=== PATIENT | female | born 1930 | race Caucasian/White ===

== ENCOUNTER 2019-05-25 16:43 | Inpatient (IN) | payer MEDICARE, OTHER ==
[2019-05-25] MEDS ORDERED: ACETAMINOPHEN TAB 325 MG TAB PO PRN (21:25)
[2019-05-25] MEDS ORDERED: HEPARIN SODIUM,PORCINE 5,000 UNIT/ML 1 ML VIAL IV PRN (21:27)
[2019-05-25] MEDS ORDERED: HEPARIN SOD,PORK IN 0.45% NACL 25,000 UNIT in 0.45% NACL 1 250ML.BAG IV SCH (22:00)
[2019-05-25 22:13] LABS: Basophils # (A) 0.1 k/uL (0-0.2); Basophils % (A) 1 %; Eosinophils # (A) 0.1 k/uL (0-0.7); Eosinophils % (A) 2 %; HCT 37.8 % (34.0-46.0); HGB 12.9 gm/dL (11.4-16.0); Lymphocytes # (A) 2.4 k/uL (1.0-4.8); Lymphocytes % (A) 27 %; MCH 32.7 pg (25.0-35.0); MCHC 34.1 g/dL (31.0-37.0); MCV 95.9 fL (80.0-100.0); Mean Platelet Volume 8.3; Monocytes # (A) 0.4 k/uL (0-1.0); Monocytes % (A) 4 %; Neutrophils # (A) 5.7 k/uL (1.3-7.7); Neutrophils % (A) 65 %; Platelet Count 177 k/uL (150-450); RBC 3.94 m/uL (3.80-5.40); RDW 13.2 % (11.5-15.5); WBC 8.8 k/uL (3.8-10.6)
[2019-05-25 22:13] LABS: Appearance,Urine Clear (Clear); Bacteria,Urine Rare /hpf; Bilirubin,Urine Negative (Negative); Blood,Urine Negative (Negative); Color,Urine Yellow; Glucose,Urine (UA) Negative (Negative); Hyaline Casts,Urine 1 /lpf (0-2); Ketones,Urine 1+ (Negative); Leukocyte Esterase,Urine Large (Negative); Mucus,Urine Rare /hpf; Nitrite,Urine Negative (Negative); Protein,Urine 1+ (Negative); RBC,Urine 5 /hpf (0-5); Specific Gravity,Urine 1.016 (1.001-1.035); Squamous Epithelial Cell,Urine 1 /hpf (0-4); Urobilinogen,Urine <2.0 mg/dL (<2.0); WBC,Urine 96 /hpf (0-5)
[2019-05-25] MEDS: ATORVASTATIN 40 MG TAB PO SCH (22:21)
[2019-05-25 22:22] LABS: INR 1.1 (<1.2); Partial Thromboplastin Time 29.5 sec (22.0-30.0); Prothrombin Time 11.1 sec (9.0-12.0)
[2019-05-26 03:37] LABS: Basophils # (A) 0.1 k/uL (0-0.2); Basophils % (A) 2 %; Eosinophils # (A) 0.1 k/uL (0-0.7); Eosinophils % (A) 2 %; HCT 35.9 % (34.0-46.0); HGB 12.2 gm/dL (11.4-16.0); Lymphocytes # (A) 2.2 k/uL (1.0-4.8); Lymphocytes % (A) 31 %; MCH 32.9 pg (25.0-35.0); MCHC 34.1 g/dL (31.0-37.0); MCV 96.7 fL (80.0-100.0); Mean Platelet Volume 8.1; Monocytes # (A) 0.3 k/uL (0-1.0); Monocytes % (A) 4 %; Neutrophils # (A) 4.3 k/uL (1.3-7.7); Neutrophils % (A) 60 %; Platelet Count 139 k/uL (150-450); RBC 3.71 m/uL (3.80-5.40); RDW 13.2 % (11.5-15.5); WBC 7.1 k/uL (3.8-10.6)
[2019-05-26 03:47] LABS: Potassium 3.4 mmol/L (3.5-5.1)
[2019-05-26 03:48] LABS: African American GFR (CKD) >90 (>60 ml/min/1.73 sqM); Anion Gap 6 mmol/L; Blood Urea Nitrogen 17 mg/dL (7-17); Calcium 8.9 mg/dL (8.4-10.2); Carbon Dioxide 25 mmol/L (22-30); Chloride 108 mmol/L (98-107); Glucose 91 mg/dL (74-99); Non-African American GFR(CKD) 81 (>60 ml/min/1.73 sqM); Sodium 139 mmol/L (137-145)
--- NOTE | 2019-05-26 09:14 | P.CRDCN ---
History of Present Illness Consult date: 05/26/19 Requesting physician: Israel Powell Consult reason: atrial fibrillation Chief complaint: Mental status change History of present illness: This is an 88-year-old female who was transferred here from [facility], the history was obtained from the medical record as the patient has advanced dementia. She was apparently noted by the staff there to have altered mental status changes. She has history of persistent atrial fibrillation, hypertension, hyperlipidemia, urinary retention, depression, Alzheimer's as mentioned, prior CVA. Cardiology consultation was requested for atrial fibrillation. Laboratory data performed at [facility], troponin 0.17, influenza A and B-, white blood cell count 11.6, hemoglobin 14.2, platelet count 200 sodium 139, potassium 3.9, chloride 104, CO2 24, glucose 142, BUN 19, creatinine 0.7, AST 46, ALT 38, alk phos 114, Lanoxin level 0.7 lactic acid 1.5, magnesium 1.8, BNP 1910, pro calcitonin negative, repeat troponin there 0.035 patient's home medications included Zoloft 50 mg daily, milk of magnesia, did trip and, Lanoxin 0.125 daily, Plavix 75 mg daily, Lipitor 40 mg daily, atenolol 100 mg daily. EKG performed at [facility] showed atrial fibrillation with slow ventricular response. Blood pressure here this morning 119/60, heart rate in the 60s, 94% on room air. Blood cell count is normal, hemoglobin 12.2, platelet count 139. Sodium 139, potassium 3.4, BUN 17, creatinine 0.6. Troponins 0.16, 0.13. Positive UTI. Chest x-ray performed at [facility] did not reveal any acute changes, CT of the brain was also performed revealed some cerebral cortical atrophy no mass effect or midline shift and no sign of intracranial bleeding At the time of my examination this morning, patient appears to be comfortable, lying flat in bed. She will open her eyes when you speak with her, otherwise no verbal response. Both of her hands are somewhat contracted on her chest. Past Medical History Past Medical History: CVA/TIA, Hyperlipidemia, Hypertension, Myocardial Infarction (NM) Additional Past Medical History / Comment(s): non healing wound L foot Last Myocardial Infarction Date:: 1996 History of Any Multi-Drug Resistant Organisms: Acinetobacter (MDRO) Date of last positivie culture/infection: 04/04/17 MDRO Source:: LEG Past Surgical History: Heart Catheterization With Stent Past Anesthesia/Blood Transfusion Reactions: No Reported Reaction Date of Last Stent Placement:: 1996 Past Psychological History: No Psychological Hx Reported Smoking Status: Never smoker Past Alcohol Use History: None Reported Past Drug Use History: None Reported - Past Family History Mother Family Medical History: No Reported History Medications and Allergies Home Medications Medication Instructions Recorded Confirmed Type Atenolol [Tenormin] 100 mg PO DAILY 04/03/17 05/25/19 History Clopidogrel Bisulfate [Plavix] 75 mg PO DAILY 04/03/17 05/25/19 History Digoxin [Lanoxin] 125 mcg PO DAILY 04/03/17 05/25/19 History amLODIPine [Norvasc] 10 mg PO DAILY 04/03/17 05/25/19 History Atorvastatin [Lipitor] 40 mg PO HS tab 04/13/17 05/25/19 Rx Sertraline [Zoloft] 50 mg PO DAILY 05/09/17 05/25/19 History Oxybutynin Xl [Ditropan Xl] 5 mg PO DAILY 05/25/19 05/25/19 History Allergies Allergy/AdvReac Type Severity Reaction Status Date / Time No Known Allergies Allergy Verified 06/20/17 14:16 Physical Exam Vitals: Vital Signs Temp Pulse Resp BP Pulse Ox 05/26/19 04:00 96.9 F L 60 16 119/67 94 L 05/26/19 00:00 98.9 F 65 16 144/78 95 05/25/19 21:00 98.3 F 63 16 133/71 94 L Intake and Output 05/25/19 05/26/19 05/26/19 22:59 06:59 14:59 Intake Total 28.193 Output Total 100 250 Balance -71.807 -250 Intake: Intake, IV Titration 28.193 Amount Heparin Sod,Pork in 0.45% 28.193 NaCl 25,000 unit In 0.45 % NaCl 1 250ml.bag @ 8.4 UNITS/KG/HR 4.725 mls/hr IV .Q24H [facility] Rx#: [id number] Output: Urine 100 250 Other: Voiding Method Indwelling Catheter Indwelling Catheter Weight 56.245 kg 55.2 kg PHYSICAL EXAMINATION: GENERAL: 88-year-old female in no acute distress at the time of my examination HEENT: Head is atraumatic, normocephalic. Pupils equal, round. Sclera anicteric. Conjunctiva are clear. Mucous membranes of the mouth are moist. Neck is supple. There is no elevated jugular venous pressure. No carotid bruit is heard. HEART EXAMINATION: Heart S1 and S2 irregularly irregular a systolic murmur is heard CHEST EXAMINATION: Lungs are clear to auscultation and precussion anteriorly. No chest wall tenderness is noted on palpation or with deep breathing. ABDOMEN: Soft, nontender. Bowel sounds are heard. No organomegaly noted. EXTREMITIES: 2+ peripheral pulses with no evidence of peripheral edema and no calf tenderness noted. NEUROLOGIC [patient is sleepy, fairly unresponsive, opens eyes to verbal co mmand. Results 05/26/19 03:21 05/26/19 03:21 Cardiac Enzymes 05/25/19 05/26/19 Range/Units 22:03 03:21 Troponin I 0.168 H* 0.139 H* (0.000-0.034) ng/mL Coagulation 05/25/19 05/26/19 Range/Units 22:03 03:21 PT 11.1 (9.0-12.0) sec APTT 29.5 38.8 H (22.0-30.0) sec CBC 05/25/19 05/26/19 Range/Units 22:03 03:21 WBC 8.8 7.1 (3.8-10.6) k/uL RBC 3.94 3.71 L (3.80-5.40) m/uL Hgb 12.9 12.2 (11.4-16.0) gm/dL Hct 37.8 35.9 (34.0-46.0) % Plt Count 177 139 L (150-450) k/uL Comprehensive Metabolic Panel 05/26/19 Range/Units 03:21 Sodium 139 (137-145) mmol/L Potassium 3.4 L (3.5-5.1) mmol/L Chloride 108 H (98-107) mmol/L Carbon Dioxide 25 (22-30) mmol/L BUN 17 (7-17) mg/dL Creatinine 0.61 (0.52-1.04) mg/dL Glucose 91 (74-99) mg/dL Calcium 8.9 (8.4-10.2) mg/dL Current Medications Generic Name Dose Route Start Last Admin Trade Name Mila PRN Reason Stop Dose Admin Acetaminophen 650 mg 05/25/19 21:25 Tylenol Tab PO Q4HR PRN Fever and/ or Pain Atorvastatin Calcium 40 mg 05/25/19 21:30 05/25/19 22:21 Lipitor PO 40 mg HS GRANT Administration Heparin Sodium (Porcine) 0 unit 05/25/19 21:27 05/26/19 04:22 Heparin IV 1,400 unit PER PROTOCOL PRN Administration Low PTT Protocol Heparin Sodium/Sodium Chloride 250 mls @ 4.725 mls/hr 05/25/19 22:00 05/26/19 04:22 25,000 unit/ Sodium Chloride IV 10.4 units/kg/hr .Q24H GRANT 5.849 mls/hr Titration Protocol 8.4 UNITS/KG/HR Intake and Output 05/25/19 05/26/19 05/26/19 22:59 06:59 14:59 Intake Total 28.193 Output Total 100 250 Balance -71.807 -250 Intake: Intake, IV Titration 28.193 Amount Heparin Sod,Pork in 0.45% 28.193 NaCl 25,000 unit In 0.45 % NaCl 1 250ml.bag @ 8.4 UNITS/KG/HR 4.725 mls/hr IV .Q24H [facility] Rx#: [id number] Output: Urine 100 250 Other: Voiding Method Indwelling Catheter Indwelling Catheter Weight 56.245 kg 55.2 kg 05/26/19 03:21 05/26/19 03:21 EKG Interpretations (text) EKG shows atrial fibrillation with a slow ventricular response Assessment and Plan Plan: Assessment and plan #1 mental status changes #2 history of prior CVA #3 advanced dementia #4 persistent atrial fibrillation, not on anticoagulation #5 hypertension #6 hyperlipidemia #7 UTI #8 coronary artery disease, exact details unavailable #9 hypokalemia #10 troponin abnormality, no significant rise and fall pattern, not consistent with acute coronary syndrome Plan We will obtain an echocardiogram with Doppler study as well as a TSH level. Replace the potassium. We will start the patient on an IVAN inhibitor, she was taking 100 mg of metoprolol at home, we'll resume that at 50 mg daily her heart rate this morning is in the 60s. Patient in the past was not felt to be a candidate for anticoagulation because of her advanced dementia, we will put her on a baby aspirin daily. Further recommendations to follow. DNP note has been reviewed, I agree with a documented findings and plan of care. Patient was seen and examined.
[2019-05-26] MEDS: ASPIRIN 81 MG PO SCH ×2 (10:21→10:35)
[2019-05-26] MEDS: LISINOPRIL 5 MG TAB PO SCH ×2 (10:22→10:34)
[2019-05-26] MEDS ORDERED: Potassium Replacement Protocol 1 EACH MISC MISCELLANE PRN (11:20)
[2019-05-26] MEDS ORDERED: MAGNESIUM HYDROXIDE 2,400 MG/10 ML CUP PO PRN (12:37)
[2019-05-26] MEDS ORDERED: NA PHOS,M-B/NA PHOS,DI-BA 133 ML ENEMA RECTAL PRN (12:37)
[2019-05-26] MEDS ORDERED: NITROGLYCERIN SL TABS 0.4 MG TAB SUBLINGUAL PRN (12:37)
[2019-05-26] MEDS: POTASSIUM CHLORIDE 10 MEQ in WATER FOR INJECTION 1 100ML.BAG IVPB SCH ×4 (13:04→17:42)
--- NOTE | 2019-05-26 18:34 | HP ---
HISTORY AND PHYSICAL DATE OF SERVICE: 05/26/2019 CHIEF COMPLAINT: Change in mental status. HISTORY OF PRESENT ILLNESS: This 88-year-old woman with a past medical history of multiple medical problems, including CVA, TIA, hypertension, hyperlipidemia, history of myocardial infarction, history of nonhealing wound of the left foot, history of Acinetobacter, MDRO, being followed by Dr. Tejas Castro in [facility], presented to [facility] with complaints of change in mental status. The patient has advanced dementia, but the staff noted some change from the baseline and they were concerned. The patient was sent to the hospital. Initial EKG showed atrial fibrillation with fast ventricular rate. Multiple electrolyte abnormalities were also noted. The patient's CT scan of the brain showed some cerebral cortical atrophy. The patient was transferred to [facility] for further evaluation and treatment. The patient was on beta blockers, which have been resumed at this time. The patient was not started on any anticoagulation because of the significant dementia, and baby aspirin is recommended by Cardiology at this time. The patient was unable to give a coherent history. Most of the history is taken from my discussion with staff and review of the chart at this time. No history of trauma. PAST MEDICAL HISTORY: CVA, TIA, hypertension, hyperlipidemia, history of myocardial infarction, history of Acinetobacter MDRO. HOME MEDICATIONS: 1. Fleet's enema. 2. Med Plus supplement. 3. Milk of Magnesia. 4. Tylenol 650 q.6 p.r.n. 5. Nitroglycerin 0.4 sublingually p.r.n. 6. Zoloft 50 mg p.o. daily and 100 mg p.o. daily. 7. Ditropan XL 5 mg p.o. daily. 8. Plavix 75 mg p.o. daily. 9. Lanoxin 125 mcg p.o. daily. 10.Lipitor is 40 mg at bedtime. 11.Tenormin 100 mg p.o. daily. 12.Norvasc 10 mg p.o. daily. ALLERGIES: NONE. FAMILY HISTORY: No history of heart disease or strokes in the family. SOCIAL HISTORY: No history of smoking. No history of alcohol intake. REVIEW OF SYSTEMS: Review of systems could not be taken; the patient is stuporous. PHYSICAL EXAMINATION: Pulse is 58, blood pressure 187/87, respiration 20, temperature 97.3, pulse ox 100% on room air. HEENT: Conjunctivae normal. Oral mucosa moist. NECK: No jugular venous distention. No carotid bruit. No lymph node enlargement. CARDIOVASCULAR SYSTEM: S1, S2 muffled. No S3. No S4. RESPIRATORY SYSTEM: Breath sounds diminished at the bases. A few scattered rhonchi and crackles. ABDOMEN: Soft, non-tender. LEGS: No edema. No swelling. NERVOUS SYSTEM: No focal deficit. LABS: WBC 7.1, hemoglobin 12.2. Sodium 139, potassium 3.4. Troponin 0.139. ASSESSMENT: 1. Atrial fibrillation with fast ventricular rate. 2. Change in mental status, metabolic encephalopathy, acute on chronic, multifactorial. 3. Possible acute urinary tract infection, present on admission, with sepsis. 4. Elevated troponin 0.168; possible acute fbb-[id number]-elevation myocardial infarction. 5. Hypokalemia. 6. History of cerebrovascular accident, transient ischemic attack. 7. Hypertension. 8. Hyperlipidemia. 9. History of nonhealing wound of the left foot. 10.Acinetobacter. 11.History of coronary artery disease, stent. 12.NO CODE, NO CPR, NO VENT. RECOMMENDATIONS AND DISCUSSION: In this 88-year-old woman who presented with multiple complex medical issues, we will monitor the patient closely, continue the current medications, continue symptomatic treatment. Otherwise at this time I recommend continuing with the beta blockers. Closely follow with Cardiology. Continue the rest of the medications. PT/OT evaluation. Continue with antibiotics for possible UTI. Guarded prognosis because of multiple complex medical issues. Further recommendations to follow. A copy of this dictation is being forwarded to Dr. Tejas Castro, who is the primary physician. Obtain the cultures also. MMODL / IJN: [id number] /
--- NOTE | 2019-05-26 19:00 | ECHOF ---
Referral Reason:afib MEASUREMENTS -------- HEIGHT: 160.0 cm WEIGHT: 64.9 kg BP: 118/49 RVIDd: 3.1 cm (< 3.3) IVSd: 1.0 cm (0.6 - 1.1) LVIDd: 4.4 cm (3.9 - 5.3) LVPWd: 1.2 cm (0.6 - 1.1) IVSs: 1.5 cm LVIDs: 3.3 cm LVPWs: 1.8 cm LAESV Index (A-L): 33.49 ml/m Ao Diam: 3.2 cm (2.0 - 3.7) AV Cusp: 2.1 cm (1.5 - 2.6) LA Diam: 3.4 cm (2.7 - 3.8) MV EXCURSION: 13.666 mm (> 18.000) MV EF SLOPE: 80 mm/s (70 - 150) EPSS: 1.0 cm MV E Cj: 0.72 m/s MV DecT: 431 ms MV A Cj: 0.95 m/s MV E/A Ratio: 0.76 AR PHT: 382 ms RAP: 5.00 mmHg RVSP: 28.51 mmHg FINDINGS -------- Sinus rhythm. This was a technically adequate study. The left ventricular size is normal. Left ventricular wall thickness is normal. There is normal g lobal left ventricular contractility. Overall left ventricular systolic function is normal with, an EF between 55 - 60 %. The diastolic filling pattern is normal for the age of the patient 6.66. The right ventricle is normal in size. LA is midly dilated 29-33ml/m2. The right atrial size is normal. Interatrial and interventricular septum intact. There is iywh-es-xmqydzcy aortic regurgitation. There is no evidence of aortic stenosis. Mild mitral regurgitation is present. Mild tricuspid regurgitation present. There is no evidence of pulmonary hypertension. The right v entricular systolic pressure, as measured by Doppler, is 28.51mmHg. Trace/mild (physiologic) pulmonic regurgitation. The aortic root size is normal. Normal inferior vena cava with normal inspiratory collapse consistent with estimated right atrial pre ssure of 5 mmHg. There is no pericardial effusion. CONCLUSIONS -------- 1. Sinus rhythm. 2. This was a technically adequate study. 3. The left ventricular size is normal. 4. Left ventricular wall thickness is normal. 5. There is normal global left ventricular contractility. 6. Overall left ventricular systolic function is normal with, an EF between 55 - 60 %. 7. The diastolic filling pattern is normal for the age of the patient 6.66 8. The right ventricle is normal in size. 9. LA is midly dilated 29-33ml/m2. 10. The right atrial size is normal. 11. Interatrial and interventricular septum intact. 12. There is uqwj-dx-nkptlrkc aortic regurgitation. 13. There is no evidence of aortic stenosis. 14. Mild mitral regurgitation is present. 15. Mild tricuspid regurgitation present. 16. There is no evidence of pulmonary hypertension. 17. The right ventricular systolic pressure, as measured by Doppler, is 28.51mmHg. 18. The aortic root size is normal. 19. Normal inferior vena cava with normal inspiratory collapse consistent with estimated right atrial pressure of 5 mmHg. 20. There is no pericardial effusion. METAL WIRE TECHNICIAN: Nitza Faria RDCS
[2019-05-26] MEDS: ATORVASTATIN 40 MG TAB PO SCH (20:11)
[2019-05-27] MEDS: PANTOPRAZOLE 40 MG TABLET PO SCH (05:56)
[2019-05-27 06:46] LABS: Basophils % (A) 0 %; Eosinophils # (A) 0.2 k/uL (0-0.7); Eosinophils % (A) 2 %; HCT 41.8 % (34.0-46.0); HGB 13.4 gm/dL (11.4-16.0); Lymphocytes # (A) 2.1 k/uL (1.0-4.8); Lymphocytes % (A) 29 %; MCH 31.4 pg (25.0-35.0); MCV 98.2 fL (80.0-100.0); Mean Platelet Volume 8.4; Monocytes # (A) 0.4 k/uL (0-1.0); Monocytes % (A) 6 %; Neutrophils # (A) 4.2 k/uL (1.3-7.7); Neutrophils % (A) 61 %; Platelet Count 148 k/uL (150-450); RBC 4.25 m/uL (3.80-5.40); RDW 13.3 % (11.5-15.5)
[2019-05-27] MEDS ORDERED: SERTRALINE 100 MG TAB PO SCH (07:00)
[2019-05-27] MEDS ORDERED: CLOPIDOGREL 75 MG TAB PO SCH (07:00)
[2019-05-27] MEDS ORDERED: SERTRALINE 50 MG TAB PO SCH (07:00)
[2019-05-27] MEDS ORDERED: amLODIPine 10 MG TAB PO SCH (07:00)
[2019-05-27] MEDS ORDERED: OXYBUTYNIN XL 5 MG TAB.ER.24 PO SCH (07:00)
[2019-05-27] MEDS ORDERED: DIGOXIN 125 MCG TAB PO SCH (07:00)
[2019-05-27 07:13] LABS: African American GFR (CKD) >90 (>60 ml/min/1.73 sqM); Anion Gap 7 mmol/L; Blood Urea Nitrogen 12 mg/dL (7-17); Calcium 9.2 mg/dL (8.4-10.2); Carbon Dioxide 27 mmol/L (22-30); Chloride 103 mmol/L (98-107); Glucose 83 mg/dL (74-99); Non-African American GFR(CKD) 81 (>60 ml/min/1.73 sqM); Potassium 4.1 mmol/L (3.5-5.1); Sodium 137 mmol/L (137-145)
[2019-05-27] MEDS: ASPIRIN 81 MG PO SCH (09:27)
[2019-05-27] MEDS: METOPROLOL SUCCINATE (ER) 50 MG TAB.ER.24H PO SCH (09:27)
[2019-05-27] MEDS: SERTRALINE 100 MG TAB PO SCH (09:28)
[2019-05-27] MEDS: SERTRALINE 50 MG TAB PO SCH (09:28)
[2019-05-27] MEDS: LISINOPRIL 5 MG TAB PO SCH (09:28)
[2019-05-27] MEDS: DIGOXIN 125 MCG TAB PO SCH (09:28)
[2019-05-27] MEDS: amLODIPine 10 MG TAB PO SCH (09:28)
[2019-05-27] MEDS: OXYBUTYNIN XL 5 MG TAB.ER.24 PO SCH (09:28)
[2019-05-27] MEDS: CLOPIDOGREL 75 MG TAB PO SCH (09:28)
--- NOTE | 2019-05-27 13:34 | P.PN ---
Subjective Progress Note Date: 05/27/19 This is an 88-year-old female who was transferred here from [facility], the history was obtained from the medical record as the patient has advanced dementia. She was apparently noted by the staff there to have altered mental status changes. She has history of persistent atrial fibrillation, hypertension, hyperlipidemia, urinary retention, depression, Alzheimer's as mentioned, prior CVA. Cardiology consultation was requested for atrial fibrillation. Laboratory data performed at [facility], troponin 0.17, influenza A and B-, white blood cell count 11.6, hemoglobin 14.2, platelet count 200 sodium 139, potassium 3.9, chloride 104, CO2 24, glucose 142, BUN 19, creatinine 0.7, AST 46, ALT 38, alk phos 114, Lanoxin level 0.7 lactic acid 1.5, magnesium 1.8, BNP 1910, pro calcitonin negative, repeat troponin there 0.035 patient's home medications included Zoloft 50 mg daily, milk of magnesia, did trip and, Lanoxin 0.125 daily, Plavix 75 mg daily, Lipitor 40 mg daily, atenolol 100 mg daily. EKG performed at [facility] showed atrial fibrillation with slow ventricular response. Blood pressure here this morning 119/60, heart rate in the 60s, 94% on room air. Blood cell count is normal, hemoglobin 12.2, platelet count 139. Sodium 139, potassium 3.4, BUN 17, creatinine 0.6. Troponins 0.16, 0.13. Positive UTI. Chest x-ray performed at [facility] did not reveal any acute changes, CT of the brain was also performed revealed some cerebral cortical atrophy no mass effect or midline shift and no sign of intracranial bleeding At the time of my examination this morning, patient appears to be comfortable, lying flat in bed. She will open her eyes when you speak with her, otherwise no verbal response. Both of her hands are somewhat contracted on her chest. 05/27/2019 Patient seen and examined this morning, hemodynamically stable, blood pressure 136/60 heart rate in the 70s, 95% on room air. White blood cell count 7.0, hemoglobin 13.4, platelet count 148. Sodium 137, potassium 4.1, BUN 12, creatinine 0.6. Objective - Vital Signs Vital signs: Vital Signs Temp 97.7 F 05/27/19 08:00 Pulse 70 05/27/19 11:52 Resp 20 05/27/19 11:52 BP 138/72 05/27/19 11:52 Pulse Ox 96 05/27/19 11:52 Intake & Output 05/26/19 05/27/19 05/27/19 18:59 06:59 18:59 Intake Total 240 Output Total 1350 200 525 Balance -1110 -200 -525 Intake: Oral 240 Output: Urine 1350 200 525 Other: Voiding Method Indwelling Catheter Indwelling Catheter Indwelling Catheter - Exam PHYSICAL EXAMINATION: GENERAL: 88-year-old female in no acute distress at the time of my examination HEENT: Head is atraumatic, normocephalic. Pupils equal, round. Sclera anicteric. Conjunctiva are clear. Mucous membranes of the mouth are moist. Neck is supple. There is no elevated jugular venous pressure. No carotid bruit is heard. HEART EXAMINATION: Heart S1 and S2 irregularly irregular a systolic murmur is he padma CHEST EXAMINATION: Lungs are clear to auscultation and precussion anteriorly. No chest wall tenderness is noted on palpation or with deep breathing. ABDOMEN: Soft, nontender. Bowel sounds are heard. No organomegaly noted. EXTREMITIES: 2+ peripheral pulses with no evidence of peripheral edema and no calf tenderness noted. NEUROLOGIC [patient is sleepy, fairly unresponsive, opens eyes to verbal command. - Labs CBC & Chem 7: 05/27/19 06:04 05/27/19 06:04 Labs: Abnormal Lab Results - Last 24 Hours (Table) 05/27/19 Range/Units 06:04 Plt Count 148 L (150-450) k/uL Microbiology - Last 24 Hours (Table) 05/26/19 03:12 Urine Culture - Preliminary Urine,Catheterized Assessment and Plan Plan: Assessment and plan #1 mental status changes #2 history of prior CVA #3 advanced dementia #4 persistent atrial fibrillation, not on anticoagulation #5 hypertension #6 hyperlipidemia #7 UTI #8 coronary artery disease, exact details unavailable #9 hypokalemia #10 troponin abnormality, no significant rise and fall pattern, not consistent with acute coronary syndrome Plan From cardiology's perspective, we'll recommend to continue this patient on her current medication. She may be transferred back to the [facility] once cleared by primary. DNP note has been reviewed, I agree with a documented findings and plan of care. Patient was seen and examined.
[2019-05-27] MEDS: ATORVASTATIN 40 MG TAB PO SCH (21:59)
--- NOTE | 2019-05-27 22:00 | PN ---
PROGRESS NOTE DATE OF SERVICE: 05/27/2019 This 88-year-old woman who was admitted with atrial fibrillation with a fast ventricular rate also had a change in mental status. No chest pain. No palpitations. No fever. The sensorium is slightly improved at this time. PHYSICAL EXAMINATION: Patient is conscious, confused. Pulse 69, blood pressure 118/64, respiration 20, temperature 97.7, pulse ox 97% on room air. HEENT: Conjunctivae normal. NECK: No jugular venous distention. CARDIOVASCULAR SYSTEM: S1, S2 irregular. RESPIRATORY SYSTEM: Breath sounds diminished at the bases. No rhonchi. No crackles. ABDOMEN: Soft, non-tender. LEGS: No edema. No swelling. NERVOUS SYSTEM: No focal deficit. LABS: Platelets 148. Otherwise, troponins are noted. ASSESSMENT: 1. Atrial fibrillation with a fast ventricular rate, present on admission. 2. Change in mental status, metabolic encephalopathy, acute on chronic, multifactorial. 3. Possible acute urinary tract infection, present on admission with sepsis. 4. Elevated troponin 0.168. Possible acute jwt-MO-fbugooy-elevation myocardial infarction, present on admission. 5. Hypokalemia. 6. History of cerebrovascular accident, transient ischemic attack. 7. Hypertension. 8. Hyperlipidemia. 9. History of nonhealing wound of the left foot. 10.Acinetobacter baumannii and Staphylococcus and multiple organisms grown previously from the culture. 11.History of coronary artery disease, stent. 12.NO CODE, NO CPR, NO VENT. RECOMMENDATIONS AND DISCUSSION: I recommend to continue current medications, continue with symptomatic treatment. Otherwise, continue to monitor closely. The overall prognosis is guarded because of multiple complex medical issues. Will closely follow with Cardiology. Continue the antibiotics. Further recommendations to follow. The most recent cultures are negative so far. MMODL / IJN: [id number] /
[2019-05-27 23:16] VITALS: RESP 16
[2019-05-28 07:51] LABS: Basophils % (A) 1 %; Eosinophils # (A) 0.2 k/uL (0-0.7); Eosinophils % (A) 3 %; HCT 41.4 % (34.0-46.0); HGB 13.7 gm/dL (11.4-16.0); Lymphocytes # (A) 1.7 k/uL (1.0-4.8); Lymphocytes % (A) 22 %; MCH 32.1 pg (25.0-35.0); MCHC 33.1 g/dL (31.0-37.0); MCV 96.9 fL (80.0-100.0); Mean Platelet Volume 8.2; Monocytes # (A) 0.4 k/uL (0-1.0); Monocytes % (A) 5 %; Neutrophils # (A) 5.3 k/uL (1.3-7.7); Neutrophils % (A) 69 %; Platelet Count 172 k/uL (150-450); RBC 4.27 m/uL (3.80-5.40); RDW 13.2 % (11.5-15.5); WBC 7.7 k/uL (3.8-10.6)
[2019-05-28 07:56] LABS: African American GFR (CKD) >90 (>60 ml/min/1.73 sqM); Anion Gap 7 mmol/L; Blood Urea Nitrogen 11 mg/dL (7-17); Calcium 9.4 mg/dL (8.4-10.2); Carbon Dioxide 26 mmol/L (22-30); Chloride 105 mmol/L (98-107); Glucose 96 mg/dL (74-99); Non-African American GFR(CKD) 81 (>60 ml/min/1.73 sqM); Potassium 3.8 mmol/L (3.5-5.1); Sodium 138 mmol/L (137-145)
[2019-05-28] MEDS: CLOPIDOGREL 75 MG TAB PO SCH (09:19)
[2019-05-28] MEDS: PANTOPRAZOLE 40 MG TABLET PO SCH (09:19)
[2019-05-28] MEDS: ASPIRIN 81 MG PO SCH (09:20)
[2019-05-28] MEDS: DIGOXIN 125 MCG TAB PO SCH (09:20)
[2019-05-28] MEDS: METOPROLOL SUCCINATE (ER) 50 MG TAB.ER.24H PO SCH (09:20)
[2019-05-28] MEDS: SERTRALINE 50 MG TAB PO SCH (09:20)
[2019-05-28] MEDS: SERTRALINE 100 MG TAB PO SCH (09:20)
[2019-05-28] MEDS: amLODIPine 10 MG TAB PO SCH (09:21)
[2019-05-28] MEDS: LISINOPRIL 5 MG TAB PO SCH (09:21)
[2019-05-28] MEDS: OXYBUTYNIN XL 5 MG TAB.ER.24 PO SCH (11:17)
[2019-05-28 12:17] VITALS: BP 122/71; PULSE 70; TEMP 98
--- NOTE | 2019-05-28 12:43 | P.DS ---
Providers Date of admission: 05/25/19 20:11 Expected date of discharge: 05/28/19 Attending physician: Israel Powell MD Consults: 05/25/19 21:56 Consult Physician Routine Consulting Provider: Ben Mac Consult Reason/Comments: Elevated troponin, hx of A-fib Do you want consulting provider notified?: Yes, Notify in am Primary care physician: Tejas Castro Hospital Course: Final diagnosis Atrial fibrillation with a fast ventricular rate, present on admission Change in mental status, metabolic encephalopathy, acute on chronic, multifactorial Possible acute urinary tract infection, present on admission was sepsis Elevated troponin 0.168. Possible acute non-ST segment elevation myocardial infarction, present on admission Hypokalemia History of cerebrovascular accident/TIA Hypertension Hyperlipidemia History of nonhealing wound on the left foot Acinetobacter baumannii and Staphylococcus and multiple organisms growing previously from the culture History of coronary artery disease, stent No code, no CPR, no vent Discharge disposition Patient is being discharged in a stable condition with guarded prognosis to [facility] where she is a resident there. Patient will continue on a short course of oral antibiotics in the form of Ceftin 500 mg twice daily for 3 days and then may discontinue. Total time taken is 35 minutes. History of present illness This is an 88-year-old female who was recently admitted with atrial fibrillation with a fast ventricular rate also had a change in mental status and was being closely monitored. Patient continues to remain slightly confused as this may be her baseline and sensorium has improved. Patient will continue on oral antibiotics in the form of Ceftin 500 mg twice daily for the next 3 days in the may discontinue. Cardiology evaluated the patient and made changes to medications and patient will continue with Toprol-XL 50 mg daily along with a low-dose aspirin and lisinopril 5 mg daily in the outpatient setting. Patient will also continue with digoxin along with Norvasc and Plavix as well. Currently patient denies any chest pain, shortness of breath, or palpitations. Patient is afebrile. Patient denies any nausea or vomiting and has been tolerating diet. Patient is stable for discharge today to [facility] where she is a resident. On exam vital signs are stable. Temp is 98F, pulse is 70, respirations are 16, blood pressure is 122/71, oxygen saturation is 97% on room air. Cardio S1, S2 are muffled. Respiratory system shows diminished breath sounds at the bases with no wheezing or rhonchi noted. Abdomen is soft, thin, nontender. Nervous system shows no focal deficits. Please refer to medication reconciliation sheet for a list of medications. Patient Condition at Discharge: Stable Plan - Discharge Summary Discharge Rx Participant: No New Discharge Prescriptions: New RX: Aspirin 81 mg PO DAILY chew Cefuroxime Axetil [Ceftin] 500 mg PO BID 3 Days #6 tab RX: Metoprolol Succinate (ER) [Toprol XL] 50 mg PO DAILY tab.er.24h RX: Lisinopril [Zestril] 5 mg PO DAILY tab Continue RX: Digoxin [Lanoxin] 125 mcg PO DAILY@0700 RX: amLODIPine [Norvasc] 10 mg PO DAILY@0700 RX: Clopidogrel Bisulfate [Plavix] 75 mg PO DAILY@0700 RX: Atorvastatin [Lipitor] 40 mg PO HS tab RX: Sertraline [Zoloft] 50 mg PO DAILY@0700 RX: Oxybutynin Xl [Ditropan XL] 5 mg PO DAILY@0700 Banatrol Plus Packet 1 packet PO DAILY RX: Acetaminophen Tab [Tylenol] 650 mg PO Q6H PRN PRN Reason: Pain RX: Magnesium Hydroxide [Milk of Magnesia] 2,400 mg PO DAILY PRN PRN Reason: Constipation RX: Na Phos,M-B/Na Phos,Di-Ba [Fleet Adult] 133 ml RECTAL Q72H PRN PRN Reason: Constipation RX: Nitroglycerin 0.4 mg SL Q5M PRN PRN Reason: Chest Pain RX: Sertraline HCl [Zoloft] 100 mg PO DAILY@0700 Med Plus Supplement 60 ml PO TID Discontinued RX: Atenolol [Tenormin] 100 mg PO DAILY@0700 Discharge Medication List RX: Clopidogrel Bisulfate [Plavix] 75 mg PO DAILY@0704/03/17 [History] RX: Digoxin [Lanoxin] 125 mcg PO DAILY@0704/03/17 [History] RX: amLODIPine [Norvasc] 10 mg PO DAILY@0700 04/03/17 [History] RX: Atorvastatin [Lipitor] 40 mg PO HS tab 04/13/17 [Rx] RX: Sertraline [Zoloft] 50 mg PO DAILY@0700 05/09/17 [History] RX: Oxybutynin Xl [Ditropan XL] 5 mg PO DAILY@0700 05/25/19 [History] Banatrol Plus Packet 1 packet PO DAILY 05/26/19 [History] Med Plus Supplement 60 ml PO TID 05/26/19 [History] RX: Acetaminophen Tab [Tylenol] 650 mg PO Q6H PRN 05/26/19 [History] RX: Magnesium Hydroxide [Milk of Magnesia] 2,400 mg PO DAILY PRN 05/26/19 [History] RX: Na Phos,M-B/Na Phos,Di-Ba [Fleet Adult] 133 ml RECTAL Q72H PRN 05/26/19 [History] RX: Nitroglycerin 0.4 mg SL Q5M PRN 05/26/19 [History] RX: Sertraline HCl [Zoloft] 100 mg PO DAILY@0700 05/26/19 [History] Cefuroxime Axetil [Ceftin] 500 mg PO BID 3 Days #6 tab 05/28/19 [Rx] RX: Aspirin 81 mg PO DAILY chew 05/28/19 [Rx] RX: Lisinopril [Zestril] 5 mg PO DAILY tab 05/28/19 [Rx] RX: Metoprolol Succinate (ER) [Toprol XL] 50 mg PO DAILY tab.er.24h 05/28/19 [Rx] Follow up Appointment(s)/Referral(s): [facility], [NON-STAFF] - 1-2 Days Activity/Diet/Wound Care/Special Instructions: Patient is returning to [facility] facility Continue current diet Activity as tolerated Follow-up with primary care provider upon discharge Discharge Disposition: TRANSFER TO SNF/ECF
== END 2019-05-28 15:15 | DRG 871 ==
LOC: 3SCARD 20:11 → 5NMEDONC 05-27 17:04
PROVIDERS: ADMIT Internal Medicine; ATTEND Internal Medicine
DX: A41.9 Sepsis, unspecified organism (principal); G93.41 Metabolic encephalopathy; I48.19 Other persistent atrial fibrillation; N39.0 Urinary tract infection, site not specified; F02.80 Dementia in other diseases classified elsewhere, unspecified severity, without behavioral disturbance, psychotic disturbance, mood disturbance, and anxiety; G30.9 Alzheimer's disease, unspecified; E78.5 Hyperlipidemia, unspecified; E87.6 Hypokalemia; I10 Essential (primary) hypertension; I25.10 Atherosclerotic heart disease of native coronary artery without angina pectoris; I25.2 Old myocardial infarction; F32.9 Major depressive disorder, single episode, unspecified; R33.9 Retention of urine, unspecified; R79.89 Other specified abnormal findings of blood chemistry; Z66 Do not resuscitate; Z79.02 Long term (current) use of antithrombotics/antiplatelets; Z79.899 Other long term (current) drug therapy; Z86.73 Personal history of transient ischemic attack (TIA), and cerebral infarction without residual deficits; Z95.5 Presence of coronary angioplasty implant and graft
CPT/HCPCS: 80048; 81001; 83605; 84443; 84484; 85025; 85610; 85730; 87040; 87086; 93306